=== PATIENT | female | born 1985 | race Caucasian/White ===

== ENCOUNTER → 2018-01-03 | Outpatient (CLI) | payer OTHER ==
[2018-01-03 12:44] LABS: HCG, SERUM QUANTITATIVE 163 MIU/ML
[2018-01-03 12:51] LABS: PROGESTERONE 11.1 NG/ML
== END ==
LOC: M LAB 11:53
DX: O09.91 Supervision of high risk pregnancy, unspecified, first trimester (principal); Z3A.00 Weeks of gestation of pregnancy not specified
CPT/HCPCS: 84702

== ENCOUNTER → 2018-01-05 | Outpatient (CLI) | payer OTHER ==
[2018-01-05 10:18] LABS: HCG, SERUM QUANTITATIVE 340 MIU/ML
== END ==
LOC: M LAB 08:46
DX: O09.91 Supervision of high risk pregnancy, unspecified, first trimester (principal)
CPT/HCPCS: 84702